=== PATIENT | male | born 1975 | race Hispanic/Latino ===

== ENCOUNTER 2023-09-27 20:56 | Emergency (ER) | payer SELFPAY ==
[2023-09-27] MEDS ORDERED: METOCLOPRAMIDE 10 MG/2mL INJ ONE (21:55)
[2023-09-27] MEDS ORDERED: NA CHLORIDE 0.9% 50 ML ONE (21:56)
[2023-09-27] MEDS ORDERED: ONDANSETRON 4 MG/2 ML VIAL ONE (21:56)
[2023-09-27] MEDS ORDERED: KETOROLAC 30 MG/ML INJ ONE (21:56)
[2023-09-27] MEDS ORDERED: NA CHLORIDE 0.9% 1,000 ML ONE (21:56)
--- NOTE | 2023-09-27 22:17 | RAD REPORT ---
EXAM DESCRIPTION: RAD - Chest Single View - 09/27/2023 10:05 pm CLINICAL HISTORY: CHEST PAIN Chest pain. COMPARISON: <Comparisons> FINDINGS: Portable technique limits examination quality. The lungs are grossly clear. The heart is normal in size. No displaced fractures. IMPRESSION: No acute intrathoracic process suspected.
[2023-09-27 23:11] LABS: Absolute Lymphocytes (CBC) 3.5 K/uL (0.7-4.9); Hematocrit 38.6 % (39.6-49.0); Lymphocytes % 17.6 % (15.3-44.8); MCV 89.3 fL (80-100); MPV 8.2 fL (7.6-11.3); Platelets 370 thou/uL (152-406); RBC Red Blood Cell Count 4.32 M/uL (4.33-5.43)
[2023-09-27 23:22] LABS: Protime INR 1.43
[2023-09-27 23:43] LABS: Albumin 2.2 g/dL (3.4-5.0); Bilirubin Direct 0.1 mg/dL (0-0.2); Bilirubin Indirect, Calculated 0.3 mg/dL (0.2-0.8); Bilirubin Total 0.4 mg/dL (0.2-1.0); Magnesium 2.4 mg/dL (1.6-2.4); Potassium 2.7 mEq/L (3.5-5.1); Protein, Total 8.1 g/dL (6.4-8.2); Troponin High Sensitivity 20.5 pg/mL (<58.9)
[2023-09-28 01:55] LABS: Blood Morphology Comment NOT SEEN (NOT SEEN); Platelet Estimate ADEQ
--- NOTE | 2023-09-28 02:15 | ER ---
Nurse's Notes [facility] Name: Dominic Ellington Age: 48 yrs Sex: Male : 1975 Arrival Date: 09/27/2023 Time: 20:56 Bed 15 Private MD: Diagnosis: Left lung cavitary lesion, left lung abscess, sepsis Presentation: 09/27 21:10 Chief complaint: Patient's son or daughter states: fever, cough,abd pain, denies nausea rv and vomiting, with diarrhea in the last two days, eating and drinking normally. Coronavirus screen: At this time, the client does not indicate any symptoms associated with coronavirus-19. Ebola Screen: No symptoms or risks identified at this time. Initial Sepsis Screen: Does the patient meet any 2 criteria? No. Patient's initial sepsis screen is negative. Does the patient have a suspected source of infection? No. Patient's initial sepsis screen is negative. Risk Assessment: Do you want to hurt yourself or someone else? Patient reports no desire to harm self or others. Onset of symptoms was September 27, 2023. 21:10 Method Of Arrival: Ambulatory rv 21:10 Acuity: WINSTON 4 rv Triage Assessment: 22:22 General: Appears in no apparent distress. comfortable, Behavior is calm, cooperative. rv Historical: - Allergies: 21:12 No Known Allergies; rv - PMHx: 21:12 None; rv - PSHx: 21:12 None; rv - Immunization history:: Adult Immunizations up to date. - Social history:: Smoking status: Patient reports the use of cigarette tobacco products, smokes one pack cigarettes per day. - Family history:: not pertinent. Screenin:21 [facility] ED Fall Risk Assessment (Adult) History of falling in the last 3 months, rv including since admission No falls in past 3 months (0 pts) Confusion or Disorientation No (0 pts) Intoxicated or Sedated No (0 pts) Impaired Gait No (0 pts) Mobility Assist Device Used No (0 pt) Altered Elimination No (0 pt) Score/Fall Risk Level 0 - 2 = Low Risk Oriented to surroundings, Maintained a safe environment, Assessed \T\ reinforced patient's understanding of fall precautions, Provided non-skid footwear, Hourly rounding (assess needs \T\ fall precautionary measures) done, Used ambulatory aids as needed (educated on \T\ assisted with), Used gait belt as appropriate. Abuse screen: Denies threats or abuse. Denies injuries from another. Nutritional screening: No deficits noted. Tuberculosis screening: No symptoms or risk factors identified. Assessment: 22:19 Reassessment: No changes from previously documented assessment. Patient and/or family rv updated on plan of care and expected duration. Pain level reassessed. Patient is alert, oriented x 3, equal unlabored respirations, skin warm/dry/pink. Pain: Complains of pain in abdomen Pain currently is 5 out of 10 on a pain scale. Cardiovascular: No deficits noted. Capillary refill is brisk in bilateral fingers JVD is absent Patient's skin is warm and dry. Respiratory: No deficits noted. Airway is patent Trachea midline Respiratory effort is even, unlabored, Respiratory pattern is regular, Sputum is Breath sounds are clear bilaterally. 23:32 Reassessment: Patient and/or family updated on plan of care and expected duration. Pain tl4 level reassessed. Patient is alert, oriented x 3, equal unlabored respirations, skin warm/dry/pink. Patient states feeling better. Patient states symptoms have improved. 09/28 02:00 General: Appears comfortable, Behavior is calm, cooperative. Pain: Complains of pain in ha1 abdomen Pain does not radiate. Pain at worst was 8 out of 10 on a pain scale. Quality of pain is described as crampy. Neuro: Level of Consciousness is awake, alert, obeys commands, Oriented to person, place, time, situation. Cardiovascular: Capillary refill < 3 seconds Patient's skin is warm and dry. Respiratory: Reports cough that is productive, Airway is patent Trachea midline Respiratory effort is even, unlabored, Respiratory pattern is regular, symmetrical, Breath sounds are clear bilaterally. GI: Abdomen is round non-distended, Bowel sounds present X 4 quads. Reports lower abdominal pain, nausea. Derm: Skin is pink, warm \T\ dry. Musculoskeletal: Circulation, motion, and sensation intact. Range of motion: intact in all extremities. 03:00 Reassessment: Patient and/or family updated on plan of care and expected duration. Pain ha1 level reassessed. Patient is alert, oriented x 3, equal unlabored respirations, skin warm/dry/pink. 04:00 Reassessment: Patient and/or family updated on plan of care and expected duration. Pain ha1 level reassessed. Patient is alert, oriented x 3, equal unlabored respirations, skin warm/dry/pink. 05:00 Reassessment: Patient and/or family updated on plan of care and expected duration. Pain ha1 level reassessed. Patient is alert, oriented x 3, equal unlabored respirations, skin warm/dry/pink. 06:00 Reassessment: Patient and/or family updated on plan of care and expected duration. Pain ha1 level reassessed. Patient is alert, oriented x 3, equal unlabored respirations, skin warm/dry/pink. 06:55 Reassessment: Patient and/or family updated on plan of care and expected duration. Pain ha1 level reassessed. Patient is alert, oriented x 3, equal unlabored respirations, skin warm/dry/pink. Patient denies pain at this time. 07:15 Reassessment: Patient appears in no apparent distress at this time. Patient and/or db family updated on plan of care and expected duration. Pain level reassessed. Patient is alert, oriented x 3, equal unlabored respirations, skin warm/dry/pink. 07:55 Reassessment: Patient appears in no apparent distress at this time. Patient and/or db family updated on plan of care and expected duration. Pain level reassessed. Patient is alert, oriented x 3, equal unlabored respirations, skin warm/dry/pink. FAMILY PROVIDED UPDATE. PATIENT RESTING IN ROOM. 08:30 Reassessment: Patient appears in no apparent distress at this time. Patient and/or db family updated on plan of care and expected duration. Pain level reassessed. Patient is alert, oriented x 3, equal unlabored respirations, skin warm/dry/pink. PATIENT FAMILY IS AT BEDSIDE. 08:45 Reassessment: Patient appears in no apparent distress at this time. Patient and/or db family updated on plan of care and expected duration. Pain level reassessed. Patient is alert, oriented x 3, equal unlabored respirations, skin warm/dry/pink. General: Appears in no apparent distress. comfortable. 08:47 Reassessment: REPORT GIVEN TO DAVID AT [facility]. PT TO TRANSFER TO ROOM 1041. db 09:09 Reassessment: Patient appears in no apparent distress at this time. Patient and/or db family updated on plan of care and expected duration. Pain level reassessed. Patient is alert, oriented x 3, equal unlabored respirations, skin warm/dry/pink. PATIENT AMBULATORY TO RESTROOM. Vital Signs: 09/27 21:10 BP 135 / 85; Pulse 110; Resp 18; Temp 98.8; Pulse Ox 95% ; Weight 99.79 kg; rv 22:20 BP 134 / 86; Pulse 104; Resp 16; Pulse Ox 96% on R/A; Pain 5/10; rv 23:31 BP 121 / 75; Pulse 85; Resp 15; Pulse Ox 97% on R/A; Pain 2/10; tl4 09/28 01:00 BP 103 / 75; Pulse 86; Resp 17 S; Pulse Ox 96% on R/A; ha1 02:00 BP 119 / 80; Pulse 82; Resp 17 S; Pulse Ox 97% on R/A; ha1 03:11 BP 119 / 75; Pulse 82; Resp 17 S; Pulse Ox 96% on R/A; ha1 04:00 BP 113 / 81; Pulse 88; Resp 17 S; Pulse Ox 96% on R/A; ha1 05:00 BP 125 / 79; Pulse 88; Resp 17 S; Pulse Ox 97% on R/A; ha1 06:00 BP 139 / 79; Pulse 93; Resp 17 S; Pulse Ox 97% on R/A; ha1 06:40 BP 132 / 87; Pulse 96; Resp 18; Pulse Ox 97% on R/A; ha1 07:15 BP 129 / 80; Pulse 102; Resp 18; Pulse Ox 96% on R/A; db 07:45 BP 144 / 54; Pulse 102; Resp 18; Pulse Ox 95% on R/A; db 08:45 BP 129 / 91; Pulse 97; Resp 18; Pulse Ox 96% on R/A; db 09:30 BP 120 / 73; Pulse 98; Resp 16; Pulse Ox 96% on R/A; db 22:20 Pain Scale: Adult rv 23:31 Pain Scale: Adult tl4 [place] Coma Score: 09/27 22:20 Eye Response: spontaneous(4). Motor Response: obeys commands(6). Verbal Response: rv oriented(5). Total: 15. ED Course: 21:00 Patient arrived in ED. jj6 21:00 Teofilo Rodríguez MD is Attending Physician. sp4 21:12 Triage completed. rv 21:12 Arm band placed on right wrist. rv 21:36 LogdaEduard shelton is Primary Nurse. tl4 22:06 XRAY Chest (1 view) In Process Unspecified. EDMS 22:14 Basic Metabolic Panel Sent. rv 22:14 CBC with Diff Sent. rv 22:14 LFT's Sent. rv 22:14 Magnesium Sent. rv 22:14 NT PRO-BNP Sent. rv 22:14 PT-INR Sent. rv 22:14 Troponin HS Sent. rv 22:14 Influenza Screen (a \T\ B) Sent. rv 22:14 COVID-19 SARS RT PCR Sent. rv 22:15 CRP Sent. rv 22:15 Lipase Sent. rv 22:18 Inserted saline lock: 20 gauge in right antecubital area, using aseptic technique. rv Blood collected. 22:21 Patient has correct armband on for positive identification. Placed in gown. Bed in low rv position. Call light in reach. Side rails up X 1. Adult w/ patient. Provided Education on: IV, meds. 22:22 No provider procedures requiring assistance completed. rv 09/28 01:22 CT Chest, Abdomen, Pelvis - W/Contrast In Process Unspecified. EDMS 01:33 Procalcitonin Sent. ha1 01:33 Blood Culture Adult (2) Sent. ha1 02:00 Report received from LAWANDA Arambula. ha1 02:38 Initiated transfer to BS, spoke with Brenda. Wouldn't complete initiation without wm reading of CT results. 03:16 Called [facility] to complete initiation of transfer. 04:32 [facility] wants the imaging first, due to not being able to show them, they denied per Dr. wm Rodríguez. 04:32 Initiated transfer to [facility], spoke with Suad Muñiz. wm 07:07 spoke with Zak from transfer center stated he was waiting on bed assignment to give kj1 admin approval. 10:32 Patient transferred, IV remains in place. db Administered Medications: 09/27 22:00 Drug: Ketorolac IVP 30 mg IVP once Route: IVP; Site: right antecubital; rv 22:44 Follow up: Response: Pain is decreased tl4 22:06 Drug: Ondansetron IVP 8 mg IVP once; over 2 minutes Route: IVP; Infused Over: 2 mins; rv Site: right antecubital; 22:44 Follow up: Response: Nausea is decreased tl4 22:10 Drug: metoCLOPramide IVP 20 mg IVP once; over 15 mins Route: IVP; Infused Over: 15 rv mins; Site: right antecubital; 22:43 Follow up: Response: Nausea is decreased tl4 22:15 Drug: NS 0.9% IV 1000 ml IV at 1 bolus Per protocol; 1000 mL bolus Route: IV; Rate: 1 rv bolus; Site: right antecubital; Delivery: Primary tubing; 23:05 Follow up: Response: No adverse reaction; IV Status: Completed infusion tl4 09/28 01:17 Drug: Potassium Chloride PO 40 mEq PO once Route: PO; ha1 10:34 Follow up: Response: No adverse reaction db 01:30 Drug: Piperacillin-Tazobactam IVPB 3.375 grams IVPB once over 60 mins; (mix in NS 100 ha1 mL) Route: IVPB; Infused Over: 60 mins; Site: right forearm; 02:29 Follow up: Response: No adverse reaction; IV Status: Completed infusion; IV Intake: ha1 100ml 02:15 Drug: NS 0.9% IV 1000 ml IV at 125 ml/hr continuous Route: IV; Rate: 125 ml/hr; Site: ha1 right forearm; 07:13 Follow up: Response: No adverse reaction; IV Status: Infusion continued ha1 02:30 Drug: morphine IVP or IV 4 mg IVP once over 4 mins Route: IVP; Infused Over: 4 mins; ha1 Site: right forearm; 03:00 Follow up: Response: No adverse reaction; Pain is decreased; RASS: Alert and Calm (0) ha1 02:30 Drug: metoCLOPramide IVP 10 mg IVP once; over 1 to 2 minutes Route: IVP; Site: right ha1 forearm; 03:00 Follow up: Response: No adverse reaction ha1 02:30 Drug: Clindamycin IVPB 900 mg IVPB once over 30 mins; (mix in 50 mL) Route: IVPB; ha1 Infused Over: 30 mins; Site: right antecubital; 03:00 Follow up: Response: No adverse reaction; IV Status: Completed infusion; IV Intake: [id number] 02:35 Drug: Ondansetron IVP 4 mg IVP once; over 2 minutes Route: IVP; Site: right forearm; ha1 03:00 Follow up: Response: No adverse reaction ha1 03:16 Drug: vancoMYCIN IVPB 1 grams IVPB once over 2 hrs Route: IVPB; Infused Over: 2 hrs; ha1 Site: right forearm; 05:12 Follow up: Response: No adverse reaction; IV Status: Completed infusion; IV Intake: ha1 250ml 04:30 Drug: D5-1/2 NS with KCl IV 20 mEq/L 1000 ml IV at 125 ml/hr continuous Route: IV; ha1 Rate: 125 ml/hr; Site: right forearm; 10:34 Follow up: Response: No adverse reaction; IV Status: Infusion continued upon transfer db Medication: 09/27 22:22 VIS not applicable for this client. rv Intake: 09/28 02:29 IV: 100ml; Total: 100ml. ha1 03:00 IV: 50ml; Total: 150ml. ha1 05:12 IV: 250ml; Total: 400ml. ha1 Outcome: 02:15 ER care complete, transfer ordered by MD. baker 10:32 Transferred by ground EMS to [facility], Transfer form db completed. 10:32 Condition: stable 10:32 Instructed on the need for transfer, 10:35 Patient left the ED. db Signatures: Dispatcher [employer] Freddie Lindsey RN RN rv Jackson, Kandis kj1 Marsh, Wendy Sandhya Saez jj6 Sarah Hi RN RN ha1 Adri Dumont RN RN db eTofilo Rodríguez MD MD sp4 Eduard Harper4 Corrections: (The following items were deleted from the chart) 03:16 02:38 Initiated transfer to [facility], spoke with [facility] 07:14 02:10 Piperacillin-Tazobactam IVPB 3.375 grams IVPB in right forearm over 60 mins ha1 ha1
--- NOTE | 2023-09-28 02:16 | EDPHYS ---
Physician Documentation [facility] Name: Dominic Ellington Age: 48 yrs Sex: Male : 1975 Arrival Date: 09/27/2023 Time: 20:56 Bed 15 Private MD: ED Physician Teofilo Rodríguez HPI: 09/27 21:00 This 48 yrs old Male presents to ER via Unassigned with complaints of Fever, sp4 Cough, Congestion, Abdominal Pain. 21:11 Is a very pleasant 48-year-old male with no significant past medical history presents sp4 with 2 weeks of fevers, cough, diarrhea, feeling unwell overall, and nausea. Fever subjective at home. The patient reports that he was taken [id number] medications for pain, also ampicillin from [place] for acute undifferentiated infection of self diagnosis. Patient reported right-sided abdominal discomfort when he coughs. . Historical: - Allergies: 21:12 No Known Allergies; rv - PMHx: 21:12 None; rv - PSHx: 21:12 None; rv - Immunization history:: Adult Immunizations up to date. - Social history:: Smoking status: Patient reports the use of cigarette tobacco products, smokes one pack cigarettes per day. - Family history:: not pertinent. ROS: 21:11 Constitutional: Positive fever positive chills positive cough positive abdominal ache sp4 positive diarrhea, positive cracked and chapped lips 21:11 All other systems are negative, Exam: 21:11 Constitutional: This is a well developed, well nourished patient who is awake, alert, sp4 and in no acute distress. Head/Face: Normocephalic, atraumatic., Positive bilateral with cracked lips and chapped lips Eyes: Pupils equal round and reactive to light, extra-ocular motions intact. Lids and lashes normal. Conjunctiva and sclera are not injected. Cornea within normal limits. Periorbital areas with no swelling, redness, or edema. ENT: Nares patent. No nasal discharge, no septal abnormalities noted. Tympanic membranes are normal and external auditory canals are clear. Oropharynx with no redness, swelling, or masses, exudates, or evidence of obstruction, uvula midline. Mucous membranes moist. Neck: Trachea midline, no thyromegaly or masses palpated, and no cervical lymphadenopathy. Supple, full range of motion without nuchal rigidity, or vertebral point tenderness. Chest/axilla: Normal chest wall appearance and motion. Nontender with no deformity. No lesions are appreciated. Cardiovascular: Regular rate and rhythm with a normal S1 and S2. No gallops, murmurs, or rubs. Normal PMI, no JVD. No pulse deficits. Respiratory: Lungs have equal breath sounds bilaterally, clear to auscultation and percussion. No rales, rhonchi or wheezes noted. No increased work of breathing, no retractions or nasal flaring. Abdomen/GI: Soft, non-tender, with normal bowel sounds. No distension or tympany. No guarding or rebound. No evidence of tenderness throughout. Back: No spinal tenderness. No costovertebral tenderness. Skin: Warm, dry with normal turgor. Normal color with no rashes, no lesions, and no evidence of cellulitis. MS/ Extremity: Pulses equal, no cyanosis. Neurovascular intact. Full, normal range of motion. Neuro: Awake and alert, GCS 15, oriented to person, place, time, and situation. Cranial nerves II-XII grossly intact. Motor strength 5/5 in all extremities. Sensory grossly intact. Psych: Awake, alert, with orientation to person, place and time. Behavior, mood, and affect are within normal limits Vital Signs: 21:10 BP 135 / 85; Pulse 110; Resp 18; Temp 98.8; Pulse Ox 95% ; Weight 99.79 kg; rv 22:20 BP 134 / 86; Pulse 104; Resp 16; Pulse Ox 96% on R/A; Pain 5/10; rv 23:31 BP 121 / 75; Pulse 85; Resp 15; Pulse Ox 97% on R/A; Pain 2/10; tl4 09/28 01:00 BP 103 / 75; Pulse 86; Resp 17 S; Pulse Ox 96% on R/A; ha1 02:00 BP 119 / 80; Pulse 82; Resp 17 S; Pulse Ox 97% on R/A; ha1 03:11 BP 119 / 75; Pulse 82; Resp 17 S; Pulse Ox 96% on R/A; ha1 04:00 BP 113 / 81; Pulse 88; Resp 17 S; Pulse Ox 96% on R/A; ha1 05:00 BP 125 / 79; Pulse 88; Resp 17 S; Pulse Ox 97% on R/A; ha1 06:00 BP 139 / 79; Pulse 93; Resp 17 S; Pulse Ox 97% on R/A; ha1 06:40 BP 132 / 87; Pulse 96; Resp 18; Pulse Ox 97% on R/A; ha1 07:15 BP 129 / 80; Pulse 102; Resp 18; Pulse Ox 96% on R/A; db 07:45 BP 144 / 54; Pulse 102; Resp 18; Pulse Ox 95% on R/A; db 08:45 BP 129 / 91; Pulse 97; Resp 18; Pulse Ox 96% on R/A; db 09:30 BP 120 / 73; Pulse 98; Resp 16; Pulse Ox 96% on R/A; db 22:20 Pain Scale: Adult rv 23:31 Pain Scale: Adult tl4 [place] Coma Score: 09/27 22:20 Eye Response: spontaneous(4). Motor Response: obeys commands(6). Verbal Response: rv oriented(5). Total: 15. MDM: 21:01 Patient medically screened. sp4 09/28 00:31 Differential diagnosis: viral Infection, bacterial infection, URI, bronchitis, sp4 pneumonia UTI, gastroenteritis. Data reviewed: vital signs, nurses notes, old medical records, lab test result(s), radiologic studies, CT scan, plain films. Consideration of Admission/Observation Escalation of care including admission/observation considered. ED course: Patient has hypokalemia potassium 2.7, WBC 20,000 with left shift, elevated alk phos 200, lipase negative, C-reactive protein highly elevated 337, chest x-ray reveals no acute intrathoracic process. Patient does have significant abdominal tenderness on repeat examination will order CT chest abdomen pelvis also will order vancomycin and Zosyn IV with blood cultures. At this time plan to admit patient for further evaluation. Will do COVID and influenza test as well.. 03:08 ED course: CT revealed multiple left lower lung cavitary lesions consistent with lung sp4 abscess. Patient was discussed with hospitalist who requested patient transfer for consultation with interventional radiologist for percutaneous drainage of left lung abscess. Patient was given IV vancomycin and Zosyn later switched to IV clindamycin.. Condition for transfer stable . 09/27 21:00 Order name: COVID-19 SARS RT PCR; Complete Time: 02:06 sp4 09/27 21:00 Order name: Influenza Screen (a \T\ B); Complete Time: 02:06 4 09/27 21:10 Order name: Basic Metabolic Panel; Complete Time: 00:25 4 09/27 21:10 Order name: CBC with Diff; Complete Time: 02:06 sp4 09/27 21:10 Order name: LFT's; Complete Time: 00:25 sp4 09/27 21:10 Order name: Magnesium; Complete Time: 00:25 4 09/27 21:10 Order name: NT PRO-BNP; Complete Time: 00:25 sp4 09/27 21:10 Order name: PT-INR; Complete Time: 00:25 4 09/27 21:10 Order name: Troponin HS; Complete Time: 00:25 4 09/27 21:11 Order name: Lipase; Complete Time: 00:25 4 09/27 21:11 Order name: CRP; Complete Time: 00:25 4 09/27 23:22 Order name: Manual Differential; Complete Time: 02:06 EDMS 09/28 00:27 Order name: Blood Culture Adult (2) 4 09/28 00:31 Order name: Procalcitonin; Complete Time: 04:01 4 09/28 04:51 Order name: Lactate w/ 2H reflex if indic.; Complete Time: 07:11 4 09/27 21:10 Order name: XRAY Chest (1 view); Complete Time: 00:25 4 09/28 00:27 Order name: CT Chest, Abdomen, Pelvis - W/Contrast [facility] 09/27 21:10 Order name: IV Saline Lock; Complete Time: 22:14 [facility] 09/27 21:10 Order name: Labs collected and sent; Complete Time: 22:14 4 09/28 03:13 Order name: NPO; Complete Time: 03:32 sp4 Administered Medications: 09/27 22:00 Drug: Ketorolac IVP 30 mg IVP once Route: IVP; Site: right antecubital; rv 22:44 Follow up: Response: Pain is decreased tl4 22:06 Drug: Ondansetron IVP 8 mg IVP once; over 2 minutes Route: IVP; Infused Over: 2 mins; rv Site: right antecubital; 22:44 Follow up: Response: Nausea is decreased tl4 22:10 Drug: metoCLOPramide IVP 20 mg IVP once; over 15 mins Route: IVP; Infused Over: 15 rv mins; Site: right antecubital; 22:43 Follow up: Response: Nausea is decreased tl4 22:15 Drug: NS 0.9% IV 1000 ml IV at 1 bolus Per protocol; 1000 mL bolus Route: IV; Rate: 1 rv bolus; Site: right antecubital; Delivery: Primary tubing; 23:05 Follow up: Response: No adverse reaction; IV Status: Completed infusion tl4 09/28 01:17 Drug: Potassium Chloride PO 40 mEq PO once Route: PO; ha1 10:34 Follow up: Response: No adverse reaction db 01:30 Drug: Piperacillin-Tazobactam IVPB 3.375 grams IVPB once over 60 mins; (mix in NS 100 ha1 mL) Route: IVPB; Infused Over: 60 mins; Site: right forearm; 02:29 Follow up: Response: No adverse reaction; IV Status: Completed infusion; IV Intake: ha1 100ml 02:15 Drug: NS 0.9% IV 1000 ml IV at 125 ml/hr continuous Route: IV; Rate: 125 ml/hr; Site: ha right forearm; 07:13 Follow up: Response: No adverse reaction; IV Status: Infusion continued ha1 02:30 Drug: morphine IVP or IV 4 mg IVP once over 4 mins Route: IVP; Infused Over: 4 mins; ha1 Site: right forearm; 03:00 Follow up: Response: No adverse reaction; Pain is decreased; RASS: Alert and Calm (0) ha1 02:30 Drug: metoCLOPramide IVP 10 mg IVP once; over 1 to 2 minutes Route: IVP; Site: right ha1 forearm; 03:00 Follow up: Response: No adverse reaction ha1 02:30 Drug: Clindamycin IVPB 900 mg IVPB once over 30 mins; (mix in 50 mL) Route: IVPB; ha1 Infused Over: 30 mins; Site: right antecubital; 03:00 Follow up: Response: No adverse reaction; IV Status: Completed infusion; IV Intake: [id number] 02:35 Drug: Ondansetron IVP 4 mg IVP once; over 2 minutes Route: IVP; Site: right forearm; ha1 03:00 Follow up: Response: No adverse reaction ha1 03:16 Drug: vancoMYCIN IVPB 1 grams IVPB once over 2 hrs Route: IVPB; Infused Over: 2 hrs; ha1 Site: right forearm; 05:12 Follow up: Response: No adverse reaction; IV Status: Completed infusion; IV Intake: ha1 250ml 04:30 Drug: D5-1/2 NS with KCl IV 20 mEq/L 1000 ml IV at 125 ml/hr continuous Route: IV; ha1 Rate: 125 ml/hr; Site: right forearm; 10:34 Follow up: Response: No adverse reaction; IV Status: Infusion continued upon transfer db Disposition Summary: 09/28/23 02:15 Transfer Ordered Notes: Transfer Location: [facility] sp4 Reason: Higher level of care sp4 Condition: Stable sp4 Problem: new sp4 Symptoms: have improved sp4 Accepting Physician: [facility] Attending (09/28/23 10:35) db Diagnosis - Left lung cavitary lesion, left lung abscess, sepsis sp4 Forms: - Medication Reconciliation Form sp4 - SBAR form sp4 Signatures: Dispatcher [employer] EDFreddie Stoll RN RN Sarah Hi RN RN ha1 Adri Dumont RN RN db Potepalov, Sergey, MD MD sp4 Eduard Harper tl4 Corrections: (The following items were deleted from the chart) 10:35 02:15 [facility] Attending sp4 db
[2023-09-28] MEDS ORDERED: METOCLOPRAMIDE 10 MG/2mL INJ ONE (02:39)
[2023-09-28] MEDS ORDERED: MORPHINE 4 MG/ML SYR ONE (02:40)
[2023-09-28] MEDS ORDERED: POTASSIUM CL SA 10 MEQ TAB PO ONE (02:40)
[2023-09-28] MEDS ORDERED: VANCOMYCIN 1 GM/VIAL ONE (02:41)
[2023-09-28] MEDS ORDERED: CLINDAMYCIN 900MG/D5W 900 MG/50 ML IVPB IV ONE (02:41)
[2023-09-28] MEDS ORDERED: NA CHLORIDE 0.9% 250 ML ONE (02:41)
[2023-09-28] MEDS ORDERED: NA CHLORIDE 0.9% 1,000 ML ONE (02:41)
[2023-09-28] MEDS ORDERED: NA CHLORIDE 0.9% 100 ML ONE (02:41)
[2023-09-28] MEDS ORDERED: ONDANSETRON 4 MG/2 ML VIAL ONE (02:41)
[2023-09-28] MEDS ORDERED: PIPERACIL/TAZO 3.375 GM VIAL IV ONE (02:42)
[2023-09-28] MEDS ORDERED: D5.45NS W/KCL 20MEQ 1,000 ML IV ONE (05:07)
[2023-09-28 10:54] VITALS: TEMP 98.8
[2023-09-28 11:13] VITALS: O2SAT 96
[2023-09-28 11:14] VITALS: BP 120/73
--- NOTE | 2023-09-29 17:20 | RAD REPORT ---
EXAM DESCRIPTION: CT - Chest Abdomen Pelvis W Cont - 09/28/2023 6:54 am CLINICAL HISTORY: The patient is 48 years old and is Male; sepsis TECHNIQUE: Axial computed tomography images of the chest, abdomen and pelvis with intravenous contra st. Sagittal and coronal reformatted images were created and reviewed. This CT exam was performed using one or more of the following dose reduction techniques: automated exposure control, adjustme nt of the mA and/or kV according to patient size, and/or use of iterative reconstruction technique. DLP: 1257 mGy*cm COMPARISON: None. FINDINGS: CHEST: LUNGS: Multiple adjacent cavitary lesions in the medial left lower lobe measuring approximately 5.2 and 4.3 cm with surrounding groundglass opacity and interlobular septal thickening. PLEURAL SPACE: Unremarkable. No significant effusion. No pneumothorax. HEART: Unremarkable. No cardiomegaly. No significant pericardial effusion. No significant cor onary artery calcifications. MEDIASTINUM: Mediastinal and left lymphadenopathy. ABDOMEN: LIVER: Hepatic steatosis. GALLBLADDER AND BILE DUCTS: Unremarkable. No calcified stones. No ductal dilation. PANCREAS: Unremarkable. No ductal dilation. No mass. SPLEEN: Unremarkable. No splenomegaly. ADRENALS: Unremarkable. No mass. KIDNEYS AND URETERS: Unremarkable. No hydronephrosis. No solid mass. STOMACH AND BOWEL: Unremarkable. No obstruction. No mucosal thickening. PELVIS: APPENDIX: The appendix is seen and is within normal limits. BLADDER: Unremarkable. No mass. REPRODUCTIVE: Unremarkable as visualized. CHEST, ABDOMEN and PELVIS: INTRAPERITONEAL SPACE: Unremarkable. No significant fluid collection. No free air. BONES/JOINTS: Grade 1 anterolisthesis of L5 on S1 due to bilateral L5 spondylolysis. No acute fracture. No dislocation. SOFT TISSUES: Fat-containing left inguinal hernia. VASCULATURE: Unremarkable. No aortic aneurysm. LYMPH NODES: See above. IMPRESSION: 1. Multiple adjacent cavitary lesions in the medial left lower lobe measuring approxim ately 5.2 and 4.3 cm with surrounding groundglass opacity and interlobular septal thickening. 2. Mediastinal and left lymphadenopathy. 3. No acute abdominal or pelvic abnormality. 4. Grade 1 anterolisthesis of L5 on S1 due to bilateral L5 spondylolysis. 5. Hepatic steatosis. Electronically signed by: Julien Barahona DO 09/28/2023 01:44 AM INSURANCE TERRITORY MANAGER Due to temporary technical issues with the PACS/Fluency reporting system, reports are being signed by the in house radiologists without review as a courtesy to insure prompt reporting. The interpreting radiologist is fully responsible for the content of the report.
== END 2023-09-28 10:35 | disposition short-term general hospital (02) ==
LOC: ER 20:56
DX: J85.2 Abscess of lung without pneumonia (principal); A41.9 Sepsis, unspecified organism; J98.4 Other disorders of lung; Z11.52 Encounter for screening for COVID-19
CPT/HCPCS: 36415; 71045; 71260; 74177; 80048; 80076; 83605; 83690; 83735; 83880; 84145; 84484; 85025; 85610; 86140; 87040; 87635; 87804; 99285; J2405; J2543; J2765; J7030; J7050; Q9967